=== PATIENT | female | born 1990 | race Hispanic/Latino ===

== ENCOUNTER 2017-04-05 18:09 | Emergency (ER) | payer SELFPAY ==
[2017-04-05 18:20] VITALS: BMI 23.9
[2017-04-05 18:23] VITALS: TEMP 98.6
--- NOTE | 2017-04-05 18:30 | ED PDOC ---
Arrival/HPI - General Chief Complaint: Back Pain Time Seen by Provider: 04/05/17 18:27 Historian: Patient - History of Present Illness Narrative History of Present Illness (Text): 04/05/17 18:30 This 26 yo female with pmh renal colic, presents to this ED c/o right flank pain and urinary symptoms x 3 days. Patient noted chills, and subjective fever x 2 days. Patient has been felling nauseous, and she had vomited multiple times today. Denies sob, cp, dizziness, , diarrhea, or abnormal gait. Denies recent travel, or sick contact. Time/Duration: Other (3 days) Context: Home Past Medical History - Provider Review Nursing Documentation Reviewed: Yes - Cardiac Hx Cardiac Disorders: No - Pulmonary Hx Respiratory Disorders: No - Neurological Hx Neurological Disorder: No - HEENT Hx HEENT Disorder: No - Renal Hx Renal Disorder: No - Endocrine/Metabolic Hx Endocrine Disorders: No - Hematological/Oncological Hx Blood Disorders: No - Integumentary Hx Dermatological Disorder: Yes Other/Comment: skin graft to right hand, left hand tendon replace. - Musculoskeletal/Rheumatological Hx Musculoskeletal Disorders: No - Gastrointestinal Hx Gastrointestinal Disorders: No - Genitourinary/Gynecological Hx Genitourinary Disorders: No Other/Comment: kidney stones, stents - Psychiatric Hx Psychophysiologic Disorder: No Hx Substance Use: No - Surgical History Hx Appendectomy: Yes Hx Cholecystectomy: Yes - Anesthesia Hx Anesthesia: Yes Hx Anesthesia Reactions: No Family/Social History - Physician Review Nursing Documentation Reviewed: Yes Family/Social History: Other (non-contributory) Smoking Status: Never Smoked Hx Alcohol Use: Yes Frequency of alcohol use: Socially Hx Substance Use: No Allergies/Home Meds Allergies/Adverse Reactions: Allergies vancomycin Allergy (Verified 04/05/17 18:20) ANAPHYLAXIS Review of Systems - Review of Systems Constitutional: Normal. absent: Fatigue, Weight Change, Fevers, Night Sweats Eyes: Normal ENT: Normal Respiratory: Normal. absent: SOB, Cough, Sputum, Wheezing Cardiovascular: Normal. absent: Chest Pain, Palpitations Gastrointestinal: Abdominal Pain, Nausea, Vomiting Genitourinary Female: Frequency. absent: Dysuria, Hematuria, Vaginal Bleeding, Vaginal Discharge Musculoskeletal: Back Pain. absent: Arthralgias, Neck Pain, Joint Swelling Skin: Normal. absent: Rash Neurological: Normal. absent: Headache, Dizziness, Focal Weakness, Gait Changes , Speech Changes, Facial Droop, Disequilibrium, Seizure Endocrine: Normal Hemo/Lymphatic: Normal Psychiatric: Normal Physical Exam Vital Signs Temp Pulse Resp BP Pulse Ox 04/05/17 20:40 89 17 132/90 99 04/05/17 18:22 98.6 F 94 H 18 134/96 H 98 Temperature: Afebrile Blood Pressure: Normal Pulse: Regular Respiratory Rate: Normal Appearance: Positive for: Well-Appearing, Non-Toxic, Comfortable Pain Distress: Mild Mental Status: Positive for: Alert and Oriented X 3 - Systems Exam Head: Present: Atraumatic, Normocephalic Pupils: Present: PERRL Extroacular Muscles: Present: EOMI Conjunctiva: Present: Normal Mouth: Present: Moist Mucous Membranes Pharnyx: Present: Normal. No: ERYTHEMA, EXUDATE, TONSILS ENLARGED Neck: Present: Normal Range of Motion Respiratory/Chest: Present: Clear to Auscultation, Good Air Exchange. No: Respiratory Distress, Accessory Muscle Use, Wheezes, Retracting, Rhonchi Cardiovascular: Present: Regular Rate and Rhythm, Normal S1, S2. No: Murmurs Abdomen: Present: Tenderness (Mild Right flank tenderness), Normal Bowel Sounds. No: Distention, Peritoneal Signs Back: Present: Normal Inspection. No: CVA Tenderness, Midline Tenderness, Paraspinal Tenderness, Pain with Leg Raise Upper Extremity: Present: Normal Inspection, Normal ROM, NORMAL PULSES, Neurovascularly Intact, Capillary Refill < 2s. No: Cyanosis, Edema Lower Extremity: Present: Normal Inspection, NORMAL PULSES, Normal ROM, Neurovascularly Intact, Capillary Refill < 2 s. No: Edema Neurological: Present: GCS=15, CN II-XII Intact, Speech Normal Skin: Present: Warm, Dry, Normal Color. No: Rashes Psychiatric: Present: Alert, Oriented x 3 Medical Decision Making ED Course and Treatment: 04/05/17 21:45 Re-evaluation. Patient feels better. Discussed results and plan with patient who expresses understanding. All questions answered and there is agreement with the plan to discharge home with instructions. Patient stable for discharge. Return if symptoms persist or worsen. Re-evaluation Time: 21:46 Reassessment Condition: Re-examined, Improved - Lab Interpretations Lab Results: 04/05/17 19:15 04/05/17 19:15 Lab Results 04/05/17 19:15: Sodium 141, Potassium 3.7, Chloride 103, Carbon Dioxide 30, Anion Gap 12, BUN 10, Creatinine 0.8, Est GFR ( Amer) > 60, Est GFR (Non- Af Amer) > 60, Random Glucose 88, Calcium 8.7, Total Bilirubin 0.6, AST 27, ALT 31, Alkaline Phosphatase 64, Total Protein 7.0, Albumin 4.1, Globulin 2.9, Albumin/Globulin Ratio 1.4, Lipase 39 04/05/17 19:15: WBC 8.2, RBC 4.49, Hgb 13.3, Hct 39.3, MCV 87.5, MCH 29.6, MCHC 33.8, RDW 12.4, Plt Count 305, MPV 9.5, Gran % 72.9 H, Lymph % (Auto) 17.4 L, [place] % (Auto) 8.4 H, Eos % (Auto) 1.2 L, Baso % (Auto) 0.1, Gran # 6.00, Lymph # 1.4, [place] # 0.7 H, Eos # 0.1, Baso # 0.01 04/05/17 19:00: Urine Color Yellow, Urine Appearance Sl cloudy, Urine pH 6.5, Ur Specific [place] 1.020, Urine Protein Trace H, Urine Glucose (UA) Negative, Urine Ketones Negative, Urine Blood Large H, Urine Nitrate Negative, Urine Bilirubin Negative, Urine Urobilinogen 0.2, Ur Leukocyte Esterase Trace H, Urine RBC Tntc, Urine WBC 1 - 3, Ur Epithelial Cells 6 - 8, Urine Bacteria Mod, Urine HCG, Qual Negative - RAD Interpretation Narrative RAD Interpretations (Text): 04/05/17 21:42 [facility] Division of Radiology [address] [address] Tel. no. Patient Name: MARYA POTTER Pt. Address: [address] [place] [address] Rec #: [id number] [place] [id number]: Usha Gannon PA-C Pt Order Location: ED : 1990 Female Age: 26 Order #: [id number] Reason for exam: right flank pain CT Scan ABD PELVIS W/O PO OR IV CONT Exam Date: 04/05/17 This imaging exam was performed at [facility] EXAM: CT Abdomen and Pelvis Without Intravenous Contrast EXAM DATE/TIME: 04/05/2017 6:31 PM CLINICAL HISTORY: 26 years old, female; Pain; Abdominal pain; Flank; Right; Prior surgery; Surgery type: Cholecystectomy - appendectomy; Additional info: Right flank pain TECHNIQUE: Axial computed tomography images of the abdomen and pelvis without intravenous contrast. All CT scans at this facility use one or more dose reduction techniques, viz.: automated exposure control; ma/kV adjustment per patient size (including targeted exams where dose is matched to indication; i.e. head); or iterative reconstruction technique. Coronal and sagittal reformatted images were created and reviewed. COMPARISON: There are no prior studies for comparison. FINDINGS: Lower thorax: Heart size is normal. Lung bases are clear ABDOMEN: Liver: unremarkable Gallbladder and bile ducts: Gallbladder is surgically absent. Common duct is unremarkable. Pancreas: unremarkable Spleen: unremarkable Adrenals: unremarkable Kidneys and ureters: There are tiny nonobstructing right renal stones.Kidneys and ureters are otherwise unremarkable. Stomach and bowel: The stomach is partially distended. Rotation is normal. Small bowel is mildly distended with fluid and air. There is no obstruction. Terminal ileum is unremarkable. There is moderate stool in the colon. There is scattered diverticulosis Appendix: Surgically absent PELVIS: Bladder: unremarkable Reproductive: Uterus and adnexal structures are unremarkable. ABDOMEN and PELVIS: Intraperitoneal space: There is no significant fluid.There is no free air. There are multiple clips in the right lower quadrant. There are clips at the base of the cecum. Bones/joints: There are no acute osseous abnormalities Soft tissues: There is rectus diastases. Vasculature: There are calcified phleboliths. Vascular structures are unremarkable. Lymph nodes: There is shotty adenopathy. IMPRESSION: Cholecystectomy and appendectomy; tiny nonobstructing right renal stones, no ureteral stones or hydronephrosis Additional findings as described above. Dictated By: Jody Faulkner MD, MD Dictated Date/Time: 04/05/172105 Signed By: Jody Faulkner MD Date Signed: 2105 Transcribed By: SERGEI Transcribe Date/Time : 04/05/172105 [facility] Radiology Orders: 04/05/17 18:31 ABD & PELVIS W/O PO OR IV CONT [CT] Stat - Medication Orders Current Medication Orders: Discontinued Medications Cephalexin Monohydrate (Keflex) 500 mg PO STAT STA PRN Reason: Protocol Stop: 04/05/17 21:43 Sodium Chloride (Sodium Chloride 0.9%) 1,000 mls @ 999 mls/hr IV .Q1H1M STA Stop: 04/05/17 19:32 Last Admin: 04/05/17 19:18 Dose: 999 mls/hr Ketorolac Tromethamine (Toradol) 15 mg IVP STAT STA Stop: 04/05/17 18:33 Last Admin: 04/05/17 19:18 Dose: 15 mg Ondansetron HCl (Zofran Inj) 4 mg IVP STAT STA Stop: 04/05/17 18:34 Last Admin: 04/05/17 19:19 Dose: 4 mg Disposition/Present on Arrival - Present on Arrival Any Indicators Present on Arrival: No History of DVT/PE: No History of Uncontrolled Diabetes: No Urinary Catheter: No History of Decub. Ulcer: No History Surgical Site Infection Following: None - Disposition Have Diagnosis and Disposition been Completed?: Yes Diagnosis: Nonspecific abdominal pain, Acute cystitis Disposition: HOME/ ROUTINE Disposition Time: 21:46 Patient Plan: Discharge Condition: GOOD Discharge Instructions (ExitCare): Abdominal Pain (ED), Urinary Tract Infection in Women (GEN) Additional Instructions: Call private doctor for follow up visit in 1-2 days. Take medication as instructed. return nto emergency if symptoms Prescriptions: Ondansetron ODT [Zofran ODT] 4 mg PO Q4H PRN #15 odt PRN Reason: Nausea/Vomiting traMADol [Ultram] 50 mg PO TID PRN #10 tab PRN Reason: Pain, Severe (8-10) Referrals: PCP,NO [Primary Care Provider] - Follow up with primary [facility] [Outside] - Follow up with primary [facility] [Outside] - Follow up with primary Forms: [employer] (Kiswahili)
[2017-04-05] MEDS ORDERED: Sodium Chloride 0.9% 1,000 ML IV STA (18:32)
[2017-04-05 19:13] LABS: PH,URINE 6.5 (4.7-8.0); URINE BILIRUBIN NEGATIVE (NEGATIVE); URINE BLOOD LARGE (NEGATIVE); URINE GLUCOSE (UA) NEGATIVE (NEGATIVE); URINE KETONE NEGATIVE (NEGATIVE); URINE LEUKOCYTE ESTERASE TRACE Leu/uL (NEGATIVE); URINE PROTEIN TRACE mg/dL (<30 mg/dL); URINE UROBILINOGEN 0.2 E.U./dL (<1 E.U./dL)
[2017-04-05 19:14] LABS: URINE APPEARANCE SL CLOUDY (CLEAR); URINE COLOR YELLOW (YELLOW)
[2017-04-05 19:24] LABS: BASO # 0.01 K/mm3 (0.0-2.0); BASO % 0.1 % (0.0-3.0); EOS # 0.1 (0.0-0.7); EOS % 1.2 % (1.5-5.0); GRAN % 72.9 % (50.0-68.0); HEMATOCRIT 39.3 % (36.0-48.0); LYMPH # 1.4 (1.2-3.4); LYMPH % 17.4 % (22.0-35.0); MEAN CELL VOLUME 87.5 fl (80.0-105.0); MEAN CORPUSCULAR HEMOGLOBIN 29.6 pg (25.0-35.0); MEAN CORPUSCULAR HGB CONC 33.8 g/dl (31.0-37.0); MEAN PLATELET VOLUME 9.5 fl (7.0-11.0); MONO # 0.7 (0.1-0.6); MONO % 8.4 % (1.0-6.0); RED CELL DISTRIBUTION WIDTH 12.4 % (11.5-14.5); WHITE BLOOD COUNT 8.2 10^3/ul (4.5-11.0)
[2017-04-05 19:29] LABS: URINE BACTERIA MOD (NEG); URINE RBC TNTC /hpf (0-2)
[2017-04-05 19:32] LABS: ALB/GLOB RATIO 1.4 (1.1-1.8); ALKALINE PHOSPHATASE 64 U/L (38-126); ALT/SGPT 31 U/L (7-56); AST/SGOT 27 U/L (14-36); BILIRUBIN,TOTAL 0.6 mg/dL (0.2-1.3); BLOOD UREA NITROGEN 10 mg/dL (7-21); CALCIUM 8.7 mg/dL (8.4-10.5); CARBON DIOXIDE 30 mmol/L (21-33); CHLORIDE 103 mmol/L (98-107); GFR AFRICAN-AMERICAN > 60; GLUCOSE,RANDOM 88 mg/dL (70-110); LIPASE 39 U/L (23-300); POTASSIUM 3.7 mmol/L (3.6-5.0); SODIUM 141 mmol/L (132-148)
--- NOTE | 2017-04-05 21:06 | CT ---
EXAM: CT Abdomen and Pelvis Without Intravenous Contrast EXAM DATE/TIME: 04/05/2017 6:31 PM CLINICAL HISTORY: 26 years old, female; Pain; Abdominal pain; Flank; Right; Prior surgery; Surgery type: Cholecystectomy - appendectomy; Additional info: Right flank pain TECHNIQUE: Axial computed tomography images of the abdomen and pelvis without intravenous contrast. All CT scans at this facility use one or more dose reduction techniques, viz.: automated exposure control; ma/kV adjustment per patient size (including targeted exams where dose is matched to indication; i.e. head); or iterative reconstruction technique. Coronal and sagittal reformatted images were created and reviewed. COMPARISON: There are no prior studies for comparison. FINDINGS: Lower thorax: Heart size is normal. Lung bases are clear ABDOMEN: Liver: unremarkable Gallbladder and bile ducts: Gallbladder is surgically absent. Common duct is unremarkable. Pancreas: unremarkable Spleen: unremarkable Adrenals: unremarkable Kidneys and ureters: There are tiny nonobstructing right renal stones.Kidneys and ureters are otherwise unremarkable. Stomach and bowel: The stomach is partially distended. Rotation is normal. Small bowel is mildly distended with fluid and air. There is no obstruction. Terminal ileum is unremarkable. There is moderate stool in the colon. There is scattered diverticulosis Appendix: Surgically absent PELVIS: Bladder: unremarkable Reproductive: Uterus and adnexal structures are unremarkable. ABDOMEN and PELVIS: Intraperitoneal space: There is no significant fluid.There is no free air. There are multiple clips in the right lower quadrant. There are clips at the base of the cecum. Bones/joints: There are no acute osseous abnormalities Soft tissues: There is rectus diastases. Vasculature: There are calcified phleboliths. Vascular structures are unremarkable. Lymph nodes: There is shotty adenopathy. IMPRESSION: Cholecystectomy and appendectomy; tiny nonobstructing right renal stones, no ureteral stones or hydronephrosis Additional findings as described above.
[2017-04-05 22:39] VITALS: BP 129/72; PULSE 83; RESP 16; O2SAT 98
== END 2017-04-05 22:39 | disposition home or self-care (01) ==
LOC: ED 18:09
DX: R10.9 Unspecified abdominal pain (principal); N30.00 Acute cystitis without hematuria
CPT/HCPCS: 74176; 80053; 81001; 81025; 83690; 84703; 85025; 87086; 96374; 96375; 99284; J1885; J2405; J7040